=== PATIENT | female | born 2000 | race Hispanic/Latino ===

== ENCOUNTER 2023-04-11 00:12 | Inpatient (IN) | payer OTHER, SELFPAY ==
[2023-04-11] MEDS ORDERED: CEFAZOLIN 1 GM VIAL ONE (00:26)
[2023-04-11] MEDS ORDERED: Boostrix 0.5 ML (Tdap) VIAL (>/=7 yrs of age) ONE (00:26)
[2023-04-11] MEDS ORDERED: fentaNYL 50 mcg/mL 1 mL Vial ONE (00:32)
[2023-04-11 00:44] LABS: #Basophils 0.1 thou/uL (0.0-0.2); #Monocytes 1.3 thou/uL (0.11-0.59); #Neutrophils 15.3 thou/uL (1.40-6.50); %Basophils 0.3 % (0.0-1.0); %Eosinophils 0.1 % (0.0-10.0); %Lymphocytes 12.4 % (21.0-51.0); %Monocytes 6.8 % (0.0-10.0); Hemoglobin 13.2 g/dL (12.0-16.0); Mean Corpuscular HGB CONC 34.4 g/dL (32.0-36.0); Mean Corpuscular Hemoglobin 31.2 pg (27.0-31.0); Mean Corpuscular Volume 90.8 fl (78.0-98.0); Mean Platelet Volume 9.2 fL (7.4-10.4); Platelet Count 249 10x3/uL (130-400); RBC Distribution Width 12.4 % (11.5-14.5); Red Blood Cell (RBC) Count 4.23 mill/uL (4.20-5.40); White Blood Cell (WBC) Count 19.2 10x3/uL (4.8-10.8)
[2023-04-11 00:52] LABS: BHCG - Serum Negative (NEGATIVE); Pregs Control Background? CLEAR/WHITE (CLR/WHITE); Pregs Control Bar Appear? YES (CONTROL BAR)
[2023-04-11 00:56] LABS: PTT 27.1 sec (22.9-36.1); Prothrombin Time 13.4 sec (12.0-14.7)
[2023-04-11] MEDS ORDERED: Lidocaine 1% w/Epinephrine 1:100K 20 ML VIAL ONE (01:00)
[2023-04-11 01:07] LABS: Acetaminophen Less than 10 mcg/mL (10.0-30.0); Alcohol 197.9 mg/dL (Less than 10); Salicylate Less than 8.0 mg/dL (15.0-30.0)
[2023-04-11 01:09] LABS: ALT (SGPT) 242 U/L (8-55); AST (SGOT) 347 U/L (5-34); Albumin 3.8 g/dL (3.4-4.8); Alkaline Phosphatase 83 U/L (40-110); Anion Gap 17 mmol/L (10-20); BUN (Urea Nitrogen) 14 mg/dL (9.8-20.1); Bilirubin, Total 0.3 mg/dL (0.2-1.2); CK (CPK) 613 U/L (29-168); Calc. Creatinine Clearance 0 mL/min (70-130); Calcium 8.1 mg/dL (7.8-10.44); Carbon Dioxide 19 mmol/L (23-31); Chloride 107 mmol/L (98-107); Estimated GFR 50; Globulin 3.3 g/dL (2.4-3.5); Glucose 129 mg/dL (83-110); Lipase 42 U/L (8-78); Potassium 3.5 mmol/L (3.5-5.1); Protein, Total 7.1 g/dL (5.8-8.1); Sodium 139 mmol/L (136-145)
[2023-04-11 01:14] LABS: Bilirubin Negative (Negative); Blood, Urine 3+ (Negative); Clarity Clear (Clear); Glucose, Urine (Dipstick) 30 mg/dL (Negative); Ketone, Urine Negative (Negative); Leukocyte 500 Leu/uL (Negative); Nitrite Negative (Negative); Protein, Urine (Dipstick) 100 mg/dL (Neg-Trace); Specific Gravity, Urine 1.048 (1.002-1.036); Squamous Epithelial 0-3 HPF (0-3); Urobilinogen Normal mg/dL (Less than 2); WBC/HPF Greater than 50 HPF (0-3)
[2023-04-11 01:15] LABS: Bacteria/HPF 1+ HPF (None Seen)
[2023-04-11] MEDS ORDERED: Ondansetron ODT 4 MG TAB PO PRN (02:24)
[2023-04-11] MEDS ORDERED: TETANUS, DIPHTHERIA TOX,ADULT (TDVAX) 0.5 ML VIAL IM ONE (02:24)
[2023-04-11] MEDS ORDERED: Glucagon 1 MG/ML KIT IM PRN (02:24)
[2023-04-11] MEDS ORDERED: Dextrose 5% in Water 1,000 ML IV PRN (02:24)
[2023-04-11] MEDS ORDERED: Ondansetron PF 4 MG/2 ML Vial IVP PRN (02:24)
[2023-04-11] MEDS ORDERED: Dextrose 50% Abboject 50 ML SYRINGE SLOW IVP PRN (02:24)
[2023-04-11] MEDS ORDERED: Ondansetron PF 4 MG/2 ML Vial ONE (02:30)
[2023-04-11] MEDS ORDERED: cefTRIAXone (ROCEPHIN) 1 GM VIAL ONE (02:48)
[2023-04-11 03:33] LABS: Lactic Acid 2.7 mmol/L (0.5-2.2)
[2023-04-11] MEDS: traMADol HCl 50 MG TAB PO PRN ×2 (03:48→09:48)
[2023-04-11] MEDS: Sodium Chloride 0.9% 1,000 ML IV SCH ×2 (03:48→13:13)
[2023-04-11 04:09] LABS: Amphetamine Not Detected (NotDetected); Barbiturates Screen Not Detected (NotDetected); Benzodiazepine Screen Not Detected (NotDetected); Cocaine Metabolite Screen Not Detected (NotDetected); Methadone Not Detected (NotDetected); Methamphetamine Not Detected (NotDetected); Opiate Screen Not Detected (NotDetected); Oxycodone Screen Not Detected (NotDetected); Phencyclidine (PCP) Not Detected (NotDetected); THC/Cannabinoid Screen Not Detected (NotDetected); Tricyclic Screen Not Detected (NotDetected)
[2023-04-11 04:50] VITALS: BMI 26.4
[2023-04-11] MEDS ORDERED: Bacitracin Zinc Ointment 30 gm TUBE ONE (04:53)
[2023-04-11] MEDS ORDERED: traMADol HCl 50 MG TAB PO SCH (06:00)
[2023-04-11] MEDS: Acetaminophen 325 MG TAB PO SCH ×3 (06:25→18:00)
[2023-04-11] MEDS: Ipratropium/Albuterol 3 ML NEB NEB SCH ×4 (07:12→18:10)
[2023-04-11] MEDS: Famotidine 20 MG TAB PO SCH ×2 (09:47→20:20)
[2023-04-11] MEDS: Ferrous Sulfate 325 MG TAB PO SCH ×2 (09:48→18:00)
[2023-04-11] MEDS: Ascorbic Acid 500 mg Chewable Tablet PO SCH (09:48)
[2023-04-11] MEDS ORDERED: Iopamidol-370 76% 500 ML MDV (1 ML CHARGE) ONE ×2 (10:37→10:39)
[2023-04-11] MEDS ORDERED: Morphine 4 MG/ML VIAL ONE (10:49)
[2023-04-11] MEDS ORDERED: Morphine 4 MG/ML VIAL SLOW IVP SCH (11:00)
[2023-04-11] MEDS ORDERED: Lidocaine 1% (PF) 30 ML VIAL ONE (11:05)
[2023-04-11] MEDS ORDERED: Morphine 2 MG/ML VIAL SLOW IVP PRN (11:44)
[2023-04-11] MEDS ORDERED: Lidocaine 1% (PF) 30 ML VIAL SC SCH (11:45)
[2023-04-11] MEDS: Ketorolac Tromethamine 30 MG/ML VIAL IVP SCH ×2 (13:09→18:00)
[2023-04-11 13:16] LABS: #Monocytes 1.7 thou/uL (0.11-0.59); #Neutrophils 12.9 thou/uL (1.40-6.50); %Basophils 0.1 % (0.0-1.0); %Lymphocytes 7.2 % (21.0-51.0); %Monocytes 10.9 % (0.0-10.0); %Neutrophils 81.2 % (42.0-75.0); Hemoglobin 12.6 g/dL (12.0-16.0); Mean Corpuscular HGB CONC 34.1 g/dL (32.0-36.0); Mean Corpuscular Hemoglobin 31.3 pg (27.0-31.0); Mean Platelet Volume 9.1 fL (7.4-10.4); Platelet Count 205 10x3/uL (130-400); Red Blood Cell (RBC) Count 4.02 mill/uL (4.20-5.40); White Blood Cell (WBC) Count 15.9 10x3/uL (4.8-10.8)
[2023-04-11] MEDS: traMADol HCl 50 MG TAB PO SCH ×2 (13:16→18:01)
[2023-04-11 13:31] LABS: Lactic Acid 0.8 mmol/L (0.5-2.2)
[2023-04-11 13:38] LABS: Anion Gap 12 mmol/L (10-20); BUN (Urea Nitrogen) 12 mg/dL (7.0-18.7); Calc. Creatinine Clearance 145 mL/min (70-130); Calcium 8.3 mg/dL (7.8-10.44); Carbon Dioxide 21 mmol/L (22-29); Chloride 108 mmol/L (98-107); Estimated GFR 126; Glucose 121 mg/dL (70-105); Phosphorus 3.5 mg/dL (2.3-4.7); Potassium 3.9 mmol/L (3.5-5.1); Sodium 137 mmol/L (136-145)
[2023-04-11] MEDS: Gabapentin 300 MG CAP PO SCH ×2 (16:09→20:18)
[2023-04-12] MEDS: traMADol HCl 50 MG TAB PO SCH ×4 (01:19→18:39)
[2023-04-12] MEDS: Acetaminophen 325 MG TAB PO SCH ×4 (01:20→18:39)
[2023-04-12 06:27] LABS: #Monocytes 1.3 thou/uL (0.11-0.59); #Neutrophils 7.9 thou/uL (1.40-6.50); %Basophils 0.2 % (0.0-1.0); %Eosinophils 0.3 % (0.0-10.0); %Lymphocytes 20.2 % (21.0-51.0); %Monocytes 11.4 % (0.0-10.0); %Neutrophils 67.6 % (42.0-75.0); Hemoglobin 11.9 g/dL (12.0-16.0); Mean Corpuscular HGB CONC 33.1 g/dL (32.0-36.0); Mean Corpuscular Hemoglobin 31.4 pg (27.0-31.0); Mean Corpuscular Volume 94.7 fl (78.0-98.0); Mean Platelet Volume 9.4 fL (7.4-10.4); Platelet Count 188 10x3/uL (130-400); RBC Distribution Width 13.3 % (11.5-14.5); Red Blood Cell (RBC) Count 3.79 mill/uL (4.20-5.40); White Blood Cell (WBC) Count 11.7 10x3/uL (4.8-10.8)
[2023-04-12] MEDS: Ketorolac Tromethamine 30 MG/ML VIAL IVP SCH ×4 (06:36→18:38)
[2023-04-12 06:53] LABS: Anion Gap 10 mmol/L (10-20); BUN (Urea Nitrogen) 11 mg/dL (7.0-18.7); Calc. Creatinine Clearance 165 mL/min (70-130); Calcium 8.3 mg/dL (7.8-10.44); Carbon Dioxide 21 mmol/L (22-29); Chloride 110 mmol/L (98-107); Estimated GFR 130; Glucose 106 mg/dL (70-105); Phosphorus 2.7 mg/dL (2.3-4.7); Potassium 4.1 mmol/L (3.5-5.1); Sodium 137 mmol/L (136-145)
[2023-04-12] MEDS: Ipratropium/Albuterol 3 ML NEB NEB SCH ×4 (08:02→18:34)
[2023-04-12] MEDS: Gabapentin 300 MG CAP PO SCH ×3 (09:25→21:08)
[2023-04-12] MEDS: Famotidine 20 MG TAB PO SCH ×2 (09:26→21:09)
[2023-04-12] MEDS: Ascorbic Acid 500 mg Chewable Tablet PO SCH (09:26)
[2023-04-12] MEDS: Ferrous Sulfate 325 MG TAB PO SCH ×2 (09:26→18:38)
[2023-04-13] MEDS: Acetaminophen 325 MG TAB PO SCH ×5 (00:24→23:20)
[2023-04-13] MEDS: traMADol HCl 50 MG TAB PO SCH ×5 (00:25→23:21)
[2023-04-13] MEDS: Ketorolac Tromethamine 30 MG/ML VIAL IVP SCH ×5 (00:25→23:20)
[2023-04-13] MEDS: Ipratropium/Albuterol 3 ML NEB NEB SCH ×4 (07:08→18:25)
[2023-04-13] MEDS: Gabapentin 300 MG CAP PO SCH ×3 (09:21→20:13)
[2023-04-13] MEDS: Famotidine 20 MG TAB PO SCH ×2 (09:21→20:12)
[2023-04-13] MEDS: Ascorbic Acid 500 mg Chewable Tablet PO SCH (09:21)
[2023-04-13] MEDS: Ferrous Sulfate 325 MG TAB PO SCH ×2 (09:21→17:30)
[2023-04-14] MEDS: Acetaminophen 325 MG TAB PO SCH (05:16)
[2023-04-14] MEDS: traMADol HCl 50 MG TAB PO SCH (05:17)
[2023-04-14] MEDS: Ketorolac Tromethamine 30 MG/ML VIAL IVP SCH (05:17)
[2023-04-14] MEDS: Ipratropium/Albuterol 3 ML NEB NEB SCH ×3 (08:43→14:32)
[2023-04-14] MEDS ORDERED: Ibuprofen 600 MG TAB PO PRN (09:23)
[2023-04-14] MEDS ORDERED: traMADol HCl 50 MG TAB PO PRN (09:25)
[2023-04-14] MEDS: Ascorbic Acid 500 mg Chewable Tablet PO SCH (09:35)
[2023-04-14] MEDS: Famotidine 20 MG TAB PO SCH ×2 (09:35→20:17)
[2023-04-14] MEDS: Ferrous Sulfate 325 MG TAB PO SCH ×2 (09:35→19:14)
[2023-04-14] MEDS: Gabapentin 300 MG CAP PO SCH ×3 (09:36→20:16)
[2023-04-14] MEDS: traMADol HCl 50 MG TAB PO PRN (13:24)
[2023-04-15] MEDS: Ipratropium/Albuterol 3 ML NEB NEB SCH ×5 (00:01→19:09)
[2023-04-15] MEDS: Acetaminophen 500 MG TAB PO PRN ×2 (01:23→21:03)
[2023-04-15 05:44] LABS: #Eosinphils 0.3 thou/uL (0.0-0.7); #Monocytes 1.2 thou/uL (0.11-0.59); #Neutrophils 5.4 thou/uL (1.40-6.50); %Basophils 0.4 % (0.0-1.0); %Eosinophils 3.2 % (0.0-10.0); %Lymphocytes 24.4 % (21.0-51.0); %Monocytes 12.7 % (0.0-10.0); %Neutrophils 59.1 % (42.0-75.0); Hemoglobin 13.3 g/dL (12.0-16.0); Mean Corpuscular HGB CONC 33.2 g/dL (32.0-36.0); Mean Corpuscular Hemoglobin 30.7 pg (27.0-31.0); Mean Corpuscular Volume 92.6 fl (78.0-98.0); Platelet Count 247 10x3/uL (130-400); RBC Distribution Width 12.4 % (11.5-14.5); Red Blood Cell (RBC) Count 4.33 mill/uL (4.20-5.40); White Blood Cell (WBC) Count 9.2 10x3/uL (4.8-10.8)
[2023-04-15] MEDS: Gabapentin 300 MG CAP PO SCH ×3 (09:20→21:05)
[2023-04-15] MEDS: Famotidine 20 MG TAB PO SCH ×2 (09:22→21:03)
[2023-04-15] MEDS: Ferrous Sulfate 325 MG TAB PO SCH ×2 (09:22→19:47)
[2023-04-15] MEDS: Ascorbic Acid 500 mg Chewable Tablet PO SCH (19:46)
[2023-04-16] MEDS: Ipratropium/Albuterol 3 ML NEB NEB SCH ×4 (06:45→18:41)
[2023-04-16] MEDS: Famotidine 20 MG TAB PO SCH ×2 (08:48→20:33)
[2023-04-16] MEDS: Ferrous Sulfate 325 MG TAB PO SCH ×2 (08:48→17:02)
[2023-04-16] MEDS: Ascorbic Acid 500 mg Chewable Tablet PO SCH (08:48)
[2023-04-16] MEDS: Gabapentin 300 MG CAP PO SCH ×3 (08:48→20:32)
[2023-04-16] MEDS: Acetaminophen 500 MG TAB PO PRN ×2 (08:50→20:31)
[2023-04-17] MEDS: Ipratropium/Albuterol 3 ML NEB NEB SCH ×4 (06:56→19:38)
[2023-04-17] MEDS: Gabapentin 300 MG CAP PO SCH ×2 (08:30→15:16)
[2023-04-17] MEDS: Ascorbic Acid 500 mg Chewable Tablet PO SCH (08:30)
[2023-04-17] MEDS: Famotidine 20 MG TAB PO SCH (08:30)
[2023-04-17] MEDS: Ferrous Sulfate 325 MG TAB PO SCH ×2 (08:31→17:57)
[2023-04-17] MEDS: Acetaminophen 500 MG TAB PO PRN (08:32)
[2023-04-17 15:30] VITALS: TEMP 98.1
[2023-04-17 20:03] VITALS: BP 118/73
== END 2023-04-17 20:00 | disposition home or self-care (01) | DRG 988 ==
LOC: EDBD 00:12 → ERS 00:12 → EDBD 01:17 → SJJU 01:17
PROVIDERS: ADMIT Surgery; ATTEND Surgery
PROC: 0W9930Z Drainage of Right Pleural Cavity with Drainage Device, Percutaneous Approach (ICD-10-PCS; principal; 2023-04-11)
PROC: 0CQ0XZZ Repair Upper Lip, External Approach (ICD-10-PCS; 2023-04-11)
PROC: 0JQG0ZZ Repair Right Lower Arm Subcutaneous Tissue and Fascia, Open Approach (ICD-10-PCS; 2023-04-11)
PROC: 0HQDXZZ Repair Right Lower Arm Skin, External Approach (ICD-10-PCS; 2023-04-11)
PROC: 0HQDXZZ Repair Right Lower Arm Skin, External Approach (ICD-10-PCS; 2023-04-11)
PROC: 0HQDXZZ Repair Right Lower Arm Skin, External Approach (ICD-10-PCS; 2023-04-11)
PROC: 0HQDXZZ Repair Right Lower Arm Skin, External Approach (ICD-10-PCS; 2023-04-11)
DX: S41.111A Laceration without foreign body of right upper arm, initial encounter (principal); S36.113A Laceration of liver, unspecified degree, initial encounter; S22.41XA Multiple fractures of ribs, right side, initial encounter for closed fracture; S27.0XXA Traumatic pneumothorax, initial encounter; S27.322A Contusion of lung, bilateral, initial encounter; T79.7XXA Traumatic subcutaneous emphysema, initial encounter; S42.001A Fracture of unspecified part of right clavicle, initial encounter for closed fracture; F10.129 Alcohol abuse with intoxication, unspecified; S01.511A Laceration without foreign body of lip, initial encounter; S01.01XA Laceration without foreign body of scalp, initial encounter; V89.2XXA Person injured in unspecified motor-vehicle accident, traffic, initial encounter; Y92.89 Other specified places as the place of occurrence of the external cause
CPT/HCPCS: 36415; 70450; 70498; 71045; 71046; 71260; 72125; 74177; 80048; 80306; 80307; 81001; 82550; 83605; 83690; 83735; 84100; 84703; 85025; 85610; 85730; 86850; 86900; 86901; 87086; 90471; 90715; 94640; 96365; 96367; 96375; 97139; G0390; J0690; J0696; J1650; J1885; J2001; J2270; J2405; J3010; J7050; J7620; Q9967